=== PATIENT | female | born 1960 | race Caucasian/White ===

== ENCOUNTER → 2016-12-18 | Outpatient (CLI) | payer OTHER ==
[~2016-12-18] MED LIST: ANUC25SU RECTAL; ANUS25SU RECTAL; CYMB60CA PO; ERYT250C12 PO; ERYT250T13 PO; FEXO180T PO; GABA600T PO; GEMF600T PO; GLIP10TA6 PO; INSU-170; IPRAAER INH; LEVEMIR SQ; LEVO150T7 PO; LEVO200T4 PO; LISI-515 PO; MAPA500T13 PO; NOVORP2 SQ; OMEP20TA PO; PLAV75TA29 PO; PRAZ5CAP PO; PRIL20CA9 PO; PROM2SUP RECTAL; REGL10TA5 PO; VIST50CA PO; [UNRECOGNIZED DRUG - SUPPLY] TOP
[2016-12-18 09:33] LABS: AUTOMATED NEUTROPHIL # 6.3 TH/MM3 (1.8-7.7); BASOPHIL % 0.5 % (0.0-2.0); EOSINOPHIL % 1.6 % (0.0-4.0); HEMO FLAGS DIFF FINAL; LYMPH % 27.9 % (9.0-44.0); MEAN CELL VOLUME 83.6 FL (80.0-100.0); MEAN CORPUSCULAR HEMOGLOBIN 27.7 PG (27.0-34.0); MEAN CORPUSCULAR HGB CONC 33.2 % (32.0-36.0); MONO % 6.9 % (0.0-8.0); NEUT % 63.1 % (16.0-70.0); PLATELET COUNT 320 TH/MM3 (150-450); RED BLOOD COUNT 4.78 MIL/MM3 (4.00-5.30); RED CELL DISTRIBUTION WIDTH 14.6 % (11.6-17.2)
[2016-12-18 09:34] LABS: BASOPHIL # 0.1 TH/MM3 (0-0.2); EOSINOPHIL # 0.2 TH/MM3 (0-0.4); LYMPHOCYTE # 2.8 TH/MM3 (1.0-4.8)
[2016-12-18 09:53] LABS: ALKALINE PHOSPHATASE 109 U/L (45-117); ALT (GPT) 19 U/L (10-53); ANION GAP 7 MEQ/L (5-15); AST (GOT) 11 U/L (15-37); BICARBONATE 28.4 MEQ/L (21.0-32.0); BLOOD UREA NITROGEN 11 MG/DL (7-18); CHLORIDE 101 MEQ/L (98-107); GLOMERULAR FILTRATION RATE 66 ML/MIN (>89); GLUCOSE,FASTING 264 MG/DL (74-99); HDL CHOLESTEROL 32.3 MG/DL (40.0-60.0); LDL CHOLESTEROL 161 MG/DL (0-99); POTASSIUM 4.1 MEQ/L (3.5-5.1); SODIUM (NA) 136 MEQ/L (136-145); TOTAL BILIRUBIN ADULT 0.4 MG/DL (0.2-1.0)
[2016-12-18 12:19] LABS: HEMOGLOBIN A1a 1.4 %; HEMOGLOBIN A1b 2.7 %; HEMOGLOBIN Ao 77.4 %; HEMOGLOBIN LA1C 3.2 %; HEMOGLOBIN P3 5.2 %
== END ==
LOC: CLAB 08:41
PROVIDERS: ATTEND Family Medicine
DX: K31.84 Gastroparesis (principal); E11.9 Type 2 diabetes mellitus without complications; R11.0 Nausea; F43.10 Post-traumatic stress disorder, unspecified; E03.9 Hypothyroidism, unspecified; G62.9 Polyneuropathy, unspecified; E78.5 Hyperlipidemia, unspecified; E66.9 Obesity, unspecified
CPT/HCPCS: 36415; 80053; 80061; 83036; 84443; 85025

== ENCOUNTER → 2017-01-29 | Outpatient (CLI) | payer OTHER ==
[~2017-01-29] MED LIST changes: -ANUS25SU RECTAL; -NOVORP2 SQ; -PROM2SUP RECTAL
[2017-01-29 08:00] LABS: HDL CHOLESTEROL 31.1 MG/DL (40.0-60.0)
== END ==
LOC: CLAB 07:07
PROVIDERS: ATTEND Family Medicine
DX: E78.5 Hyperlipidemia, unspecified (principal); E03.9 Hypothyroidism, unspecified
CPT/HCPCS: 36415; 80061; 84443

== ENCOUNTER 2017-11-12 10:34 | Emergency (ER) | payer MEDICAID, OTHER ==
[~2017-11-12] VITALS: Ht 165.1 cm; Wt 80.0 kg
[~2017-11-12 10:34] MED LIST changes: -ERYT250C12 PO; +IBUP1TAB7 PO; -INSU-170; -LEVO200T4 PO; -OMEP20TA PO; +OMEP20TA93 PO; -PRIL20CA9 PO
[2017-11-12 10:36] VITALS: PULSE 100; RESP 20; TEMP 97.2; O2SAT 99
[2017-11-12] MEDS ORDERED: SODIUM CHLOR 0.9% 1000 ML INJ 1,000 ML IV ONE (11:09)
[2017-11-12] MEDS ORDERED: METOCLOPRAMIDE HCL 10 MG/2 ML VIAL IV PUSH ONE (11:15)
[2017-11-12] MEDS ORDERED: SODIUM CHLORIDE 0.9% FLUSH 10 ML FLUSH IVF PRN (11:15)
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
[2017-11-12] MEDS ORDERED: LURA1TAB2 PO (11:39)
[2017-11-12] MEDS ORDERED: ALBUAER3 INH (11:39)
[2017-11-12] MEDS ORDERED: LINA145C PO (11:39)
[2017-11-12] MEDS ORDERED: GLIP10TA6 PO (11:39)
[2017-11-12] MEDS ORDERED: OMEP40CA2 PO (11:39)
[2017-11-12 11:50] LABS: AUTOMATED NEUTROPHIL # 10.2 TH/MM3 (1.8-7.7); BASOPHIL % 0.3 % (0.0-2.0); EOSINOPHIL # 0.1 TH/MM3 (0-0.4); EOSINOPHIL % 0.5 % (0.0-4.0); HEMATOCRIT 40.3 % (35.0-46.0); HEMOGLOBIN 13.3 GM/DL (11.6-15.3); LYMPH % 18.4 % (9.0-44.0); LYMPHOCYTE # 2.7 TH/MM3 (1.0-4.8); MEAN CELL VOLUME 80.4 FL (80.0-100.0); MEAN CORPUSCULAR HEMOGLOBIN 26.5 PG (27.0-34.0); MEAN CORPUSCULAR HGB CONC 32.9 % (32.0-36.0); MEAN PLATELET VOLUME 9.6 FL (7.0-11.0); MONO % 11.4 % (0.0-8.0); MONOCYTE # 1.7 TH/MM3 (0-0.9); NEUT % 69.4 % (16.0-70.0); PLATELET COUNT 346 TH/MM3 (150-450); RED BLOOD COUNT 5.01 MIL/MM3 (4.00-5.30); RED CELL DISTRIBUTION WIDTH 13.6 % (11.6-17.2); WHITE BLOOD COUNT 14.6 TH/MM3 (4.0-11.0)
--- NOTE | 2017-11-12 11:54 | RADRPT ---
EXAM DATE/TIME: 11/12/2017 11:24 [facility] COMPARISON: No previous studies available for comparison. INDICATIONS : Vomiting. Patients states she has Gastroparesis and it has become worse. MEDICAL HISTORY : Gastroparesis. SURGICAL HISTORY : None. ENCOUNTER: Initial ACUITY: 1 week PAIN SCORE: 0/10 LOCATION: Bilateral chest abdomen. FINDINGS: A single view of the chest demonstrates the lungs to be symmetrically aerated without evidence of mas s, infiltrate or effusion. The cardiomediastinal contours are unremarkable. Osseous structures are intact. CONCLUSION: No acute disease. Roel Banda MD on November 12, 2017 at 11:52 Board Certified Radiologist. This report was verified electronically.
[2017-11-12 11:59] LABS: BACTERIA, URINE RARE /hpf; BILIRUBIN, URINE NEG (NEG); BLOOD, URINE MOD (NEG); GLUCOSE,URINE 1000 mg/dL (NEG); KETONE, URINE 40 mg/dL (NEG); MUCUS URINE FEW /lpf (OCC); NITRITE,URINE NEG (NEG); SQUAMOUS EPITHELIAL CELL URINE 2 /hpf (0-5); URINE COLOR YELLOW (YELLW/STRAW); URINE LEUKOCYTE ESTERASE MOD (NEG)
[2017-11-12 12:02] LABS: ALBUMIN 3.1 GM/DL (3.4-5.0); AST (GOT) 11 U/L (15-37); BICARBONATE 24.8 MEQ/L (21.0-32.0); BLOOD UREA NITROGEN 16 MG/DL (7-18); CALCIUM 8.8 MG/DL (8.5-10.1); CHLORIDE 94 MEQ/L (98-107); GLOMERULAR FILTRATION RATE 65 ML/MIN (>89); GLUCOSE,RANDOM 299 MG/DL (74-106); SODIUM (NA) 130 MEQ/L (136-145)
[2017-11-12 12:03] LABS: ALT (GPT) 23 U/L (10-53)
[2017-11-12 12:05] LABS: ALKALINE PHOSPHATASE 101 U/L (45-117); TOTAL BILIRUBIN ADULT 0.5 MG/DL (0.2-1.0); TOTAL PROTEIN 8.1 GM/DL (6.4-8.2)
[2017-11-12] MEDS ORDERED: POTASSIUM CHLORIDE 10 MEQ CONTROLLED RELEASE TAB PO ONE (15:15)
[2017-11-12] MEDS ORDERED: NYST15T TOPICAL (15:22)
== END 2017-11-12 15:48 | disposition home or self-care (01) ==
LOC: NEPE 10:34
DX: E11.43 Type 2 diabetes mellitus with diabetic autonomic (poly)neuropathy (principal); K31.84 Gastroparesis; E87.1 Hypo-osmolality and hyponatremia; E87.6 Hypokalemia; R82.71 Bacteriuria; I10 Essential (primary) hypertension; Z79.4 Long term (current) use of insulin; Z87.891 Personal history of nicotine dependence
CPT/HCPCS: 71045; 80053; 81001; 83690; 85025; 87086; 96361; 96374; 99284; J2765; J7030